=== PATIENT | female | born 1995 | race Caucasian/White ===

== ENCOUNTER 2018-03-04 09:04 | Emergency (ER) | payer OTHER ==
[~2018-03-04] VITALS: Ht 162.6 cm; Wt 113.4 kg
[2018-03-04 09:07] VITALS: BP 139/52
[2018-03-04 09:29] VITALS: BP 112/88
== END 2018-03-04 09:29 | disposition home or self-care (01) ==
LOC: MED 09:04
DX: J02.9 Acute pharyngitis, unspecified (principal); K12.0 Recurrent oral aphthae
CPT/HCPCS: 99283